=== PATIENT | female | born 1975 ===

== ENCOUNTER 2022-11-24 11:40 | Day surgery (SDC) | payer OTHER ==
[~2022-11-24 11:40] MED LIST: COZAAR50 MG PO; CRESTOR10 MG PO; HYDROCHLOROTHIA50 MG PO; LEVOTHYROXINE25 MCG PO; LOVAZA1 GM PO; MAXIMUM D3325 MCG PO; MOUNJARO5 MG/0.5 M; PROVERA2.5 MG PO; ZYRTEC10 M3 PO
== END 2022-11-24 22:25 | disposition home or self-care (01) ==
LOC: CIR.AMB 11:40
PROVIDERS: ATTEND Obstetrics & Gynecology
DX: N84.0 Polyp of corpus uteri (principal); N93.8 Other specified abnormal uterine and vaginal bleeding; R93.5 Abnormal findings on diagnostic imaging of other abdominal regions, including retroperitoneum; Z20.822 Contact with and (suspected) exposure to COVID-19; Z88.6 Allergy status to analgesic agent; Z91.018 Allergy to other foods

== ENCOUNTER 2024-10-17 05:43 | Day surgery (SDC) | payer OTHER ==
[2024-10-14 11:21] LABS: RH POSITIVE
[~2024-10-17 05:43] MED LIST changes: +BUPROPION XL300 MG PO
[2024-10-17] MEDS ORDERED: POVIDONE-IODINE 118 ML BOTT TOP ONE (07:12)
[2024-10-17] MEDS ORDERED: BUPIVACAINE HCL/MPF 0.5% 30ML VIAL ONE (07:12)
[2024-10-17] MEDS ORDERED: LIDOCAINE HCL 1%/EPINEPHRINE 20ML VIAL IJ ONE (07:12)
[2024-10-17] MEDS ORDERED: CEFAZOLIN SODIUM 1,000 MG VIAL ONE (07:13)
[2024-10-17] MEDS ORDERED: SURGIFLO APPLICATOR 1 EACH APPL TOP ONE (09:07)
[2024-10-17] MEDS ORDERED: HEMOSTATIC MATRIX 1 KIT KIT TOP ONE (09:07)
[2024-10-17] MEDS ORDERED: KETO10TA2 PO (13:32)
== END 2024-10-17 14:30 | disposition home or self-care (01) ==
LOC: CIR.AMB 05:43
PROVIDERS: ATTEND Obstetrics & Gynecology
DX: N83.291 Other ovarian cyst, right side (principal)